=== PATIENT | female | born 1990 | race African-American/Black ===

== ENCOUNTER 2017-06-24 04:10 | Emergency (ER) | payer OTHER ==
[~2017-06-24] VITALS: Ht 160 cm; Wt 62.1 kg
[~2017-06-24 04:10] MED LIST: CYCLOBENZAPRINE5 MG PO; IBUPROFEN 800800 MG PO; NORCO 5-325 TA1 EACH PO
[2017-06-24] MEDS ORDERED: IBUPROFEN 800800 M1 (04:13)
[2017-06-24] MEDS ORDERED: CLEOCIN HCL150 MG PO (04:25)
[2017-06-24] MEDS ORDERED: ULTRAM 50MG TAB50 MG PO (04:25)
== END 2017-06-24 04:53 | disposition home or self-care (01) ==
LOC: ER 04:10
DX: K02.9 Dental caries, unspecified (principal); J32.9 Chronic sinusitis, unspecified; F17.210 Nicotine dependence, cigarettes, uncomplicated

== ENCOUNTER 2019-03-21 15:38 | Emergency (ER) | payer OTHER ==
[~2019-03-21] VITALS: Ht 160 cm; Wt 59.0 kg
[~2019-03-21 15:38] MED LIST changes: +CLEOCIN HCL150 MG PO; +IBUPROFEN 800800 M1; +ULTRAM 50MG TAB50 MG PO
[2019-03-21 15:54] LABS: URINE BILIRUBIN NEGATIVE (Negative); URINE BLOOD 3+ (Negative); URINE COLOR YELLOW; URINE GLUCOSE-RANDOM* NEGATIVE (Negative); URINE KETONES NEGATIVE (Negative); URINE LEUKOCYTES-REFLEX NEGATIVE (Negative); URINE NITRITE-REFLEX NEGATIVE (Negative); URINE PROTEIN (DIPSTICK) 1+ (Negative); URINE SPECIFIC GRAVITY 1.015 (1.005-1.035)
[2019-03-21 15:55] LABS: URINE CLARITY HAZY
[2019-03-21 16:07] LABS: CASTS None Seen /LPF (None Seen); SQUAMOUS >10 Many /LPF (0-3)
[2019-03-21 16:08] LABS: MUCUS 0-3 Light strn/LPF (None Seen)
[2019-03-21 16:09] LABS: CRYSTALS None Seen /LPF (None Seen); URINE RBC >20 Many /HPF (0-2); URINE WBC-REFLEX 0-5 Rare /HPF (0-5)
[2019-03-21 16:13] LABS: ABSOLUTE NEUTROPHILS 7.7 thou/uL (1.4-8.2); BASOPHILS 0.5 % (0.0-2.0); EOSINOPHILS 0.7 % (0.0-3.0); HEMATOCRIT 40.1 % (37.0-47.0); HEMOGLOBIN 13.5 gm/dL (12.0-15.0); LYMPHOCYTES 17.8 % (24.0-44.0); MCH 32.7 pg (26.0-34.0); MCHC 33.6 g/dL (28.0-37.0); MCV 97.1 fL (80.0-100.0); MONOCYTES 4.6 % (1.0-8.0); PLATELET COUNT 199 thou/uL (150-400); POLYS 76.4 % (36.0-66.0); RBC 4.12 mil/uL (4.20-5.00); RDW 11.5 % (10.5-14.5); WBC 10.1 thou/uL (4.0-11.0)
[2019-03-21 16:19] LABS: CALCIUM 9.2 mg/dL (8.5-10.1); CREATININE 0.9 mg/dL (0.6-1.0); POTASSIUM 3.5 mmol/L (3.5-5.1)
[2019-03-21 16:25] LABS: ALBUMIN 4.1 g/dL (3.4-5.0); TOTAL BILIRUBIN 0.9 mg/dL (<0.1-1.0)
[2019-03-21] MEDS ORDERED: ONDANSETRON HCL4 M2 PO (17:32)
[2019-03-21] MEDS ORDERED: TORADOL 10 MG T10 MG PO (17:32)
[2019-03-21 18:14] VITALS: BP 93/40
== END 2019-03-21 18:15 | disposition home or self-care (01) ==
LOC: ER 15:38
PROVIDERS: Physician Assistant
DX: N94.6 Dysmenorrhea, unspecified (principal); N83.202 Unspecified ovarian cyst, left side; F17.290 Nicotine dependence, other tobacco product, uncomplicated

== ENCOUNTER → 2019-06-28 | Emergency (ER) | payer OTHER ==
[~2019-06-28] VITALS: Ht 162.6 cm; Wt 61.2 kg
[~2019-06-28] MED LIST changes: +ONDANSETRON HCL4 M2 PO; +TORADOL 10 MG T10 MG PO
[2019-06-28 10:38] VITALS: BP 110/64
== END ==
LOC: ER 10:35
DX: Z53.21 Procedure and treatment not carried out due to patient leaving prior to being seen by health care provider (principal)